=== PATIENT | female | born 1995 | race Caucasian/White ===

== ENCOUNTER → 2020-05-28 11:01 | Outpatient (BNVA) | payer OTHER, SELFPAY | PROVIDERS: PCP Nurse Practitioner Family; Visit Provider Nurse Practitioner Family | DX: Z20.828 Contact with and (suspected) exposure to other viral communicable diseases (principal); J06.9 Acute upper respiratory infection, unspecified; R43.0 Anosmia | CPT/HCPCS: 87635 ==